=== PATIENT | female | born 1965 | race Caucasian/White ===

== ENCOUNTER 2020-10-25 10:23 | Outpatient (REF) | payer OTHER, SELFPAY ==
--- NOTE | 2020-10-25 10:31 | XR_ITS ---
EXAMINATION: XR SINUSES CLINICAL INFORMATION: Sinusitis COMPARISON: CT sinuses noncontrast 01/26/2019 TECHNIQUE: 3 views of the sinuses were obtained. FINDINGS: The frontal sinuses are hypoplastic/aplastic. The remainder of the sinuses appear well-aerated and clear. There is no mucosal thickening or air-fluid level or visible polyp on plain film. There is no sinus bony wall thickening or destructive process. The visualized mastoid air cells show no air-fluid levels. XR/XR sinus min 3V IMPRESSION: Unremarkable examination.
== END 2020-10-25 10:24 | disposition home or self-care (01) ==
LOC: HO.XRAY 10:23
PROVIDERS: PCP Internal Medicine; Visit Provider Otolaryngology
DX: J32.9 Chronic sinusitis, unspecified (principal)
CPT/HCPCS: 70220